=== PATIENT | female | born 1990 | race Caucasian/White ===

== ENCOUNTER 2017-10-21 23:54 | Emergency (ER) | payer BC, OTHER ==
[~2017-10-21] VITALS: Ht 162.6 cm; Wt 72.0 kg
[~2017-10-21 23:54] MED LIST: AMOX875T20 PO; CITA20 PO
[2017-10-21 23:59] VITALS: BP 125/84; PULSE 130; RESP 20; TEMP 98.1; O2SAT 99
[2017-10-22] MEDS ORDERED: ALPR1TAB3 PO (00:32)
[2017-10-22] MEDS ORDERED: CELE20TA PO (00:32)
[2017-10-22] MEDS ORDERED: AMOXICILLIN/CLAVULANATE K 875 MG TAB PO ONE (02:00)
[2017-10-22] MEDS ORDERED: ALPRAZolam 1 MG TAB PO ONE (02:00)
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
[2017-10-22] MEDS ORDERED: AUGM875T3 PO ×2 (02:06→02:08)
[2017-10-22] MEDS ORDERED: ALPRAZolam 0.5 MG TAB PO ONE (02:15)
[2017-10-22 02:30] VITALS: BP 138/72
== END 2017-10-22 02:58 | disposition home or self-care (01) ==
LOC: PHED 23:54
DX: S60.572A Other superficial bite of hand of left hand, initial encounter (principal); S60.571A Other superficial bite of hand of right hand, initial encounter; S50.872A Other superficial bite of left forearm, initial encounter; S50.871A Other superficial bite of right forearm, initial encounter; S71.152A Open bite, left thigh, initial encounter; W54.0XXA Bitten by dog, initial encounter; F17.200 Nicotine dependence, unspecified, uncomplicated; F12.90 Cannabis use, unspecified, uncomplicated; F14.90 Cocaine use, unspecified, uncomplicated
CPT/HCPCS: 99283

== ENCOUNTER 2017-11-23 23:00 | Observation (INO) | payer OTHER ==
[~2017-11-23] VITALS: Ht 162.6 cm; Wt 60.0 kg
[~2017-11-23 23:00] MED LIST changes: +ALPR1TAB3 PO; -AMOX875T20 PO; +AUGM875T3 PO; +CELE20TA PO; -CITA20 PO
[2017-11-23 23:09] VITALS: RESP 20
[2017-11-23] MEDS ORDERED: ONDANSETRON HCL 4 MG/2 ML VIAL IV PUSH ONE (23:30)
[2017-11-23] MEDS ORDERED: MORPHINE SULFATE 2 MG/ML INJ IV PUSH ONE (23:30)
[2017-11-23] MEDS ORDERED: AMPICILLIN-SULBACTAM INJ 3 GM in SODIUM CHLORIDE 0.9% INJ 100 ML IV ONE (23:45)
[2017-11-23] MEDS ORDERED: SODIUM CHLOR 0.9% 1000 ML INJ 1,000 ML IV ONE (23:45)
[2017-11-23] MEDS ORDERED: KETOROLAC TROMETHAMINE 30 MG/ML (IVP) VIAL IV PUSH ONE (23:45)
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
[2017-11-23 23:47] VITALS: BP 143/77; PULSE 81; RESP 18; TEMP 98.2; O2SAT 100
[2017-11-24 00:01] LABS: AUTOMATED NEUTROPHIL # 8.6 TH/MM3 (1.8-7.7); BASOPHIL # 0.1 TH/MM3 (0-0.2); BASOPHIL % 0.4 % (0.0-2.0); EOSINOPHIL # 0.1 TH/MM3 (0-0.4); EOSINOPHIL % 0.9 % (0.0-4.0); HEMATOCRIT 39.4 % (35.0-46.0); HEMOGLOBIN 13.4 GM/DL (11.6-15.3); LYMPH % 27.6 % (9.0-44.0); LYMPHOCYTE # 3.6 TH/MM3 (1.0-4.8); MEAN CELL VOLUME 90.6 FL (80.0-100.0); MEAN CORPUSCULAR HEMOGLOBIN 30.7 PG (27.0-34.0); MEAN CORPUSCULAR HGB CONC 33.9 % (32.0-36.0); MEAN PLATELET VOLUME 10.2 FL (7.0-11.0); MONOCYTE # 0.8 TH/MM3 (0-0.9); NEUT % 65.1 % (16.0-70.0); PLATELET COUNT 313 TH/MM3 (150-450); RED BLOOD COUNT 4.35 MIL/MM3 (4.00-5.30); RED CELL DISTRIBUTION WIDTH 12.7 % (11.6-17.2); WHITE BLOOD COUNT 13.2 TH/MM3 (4.0-11.0)
[2017-11-24 00:24] LABS: BICARBONATE 19.7 MEQ/L (21.0-32.0); BLOOD UREA NITROGEN 20 MG/DL (7-18); CHLORIDE 108 MEQ/L (98-107); CREATININE 0.88 MG/DL (0.50-1.00); GLOMERULAR FILTRATION RATE 77 ML/MIN (>89); GLUCOSE,RANDOM 115 MG/DL (74-106); SODIUM (NA) 139 MEQ/L (136-145)
--- NOTE | 2017-11-24 00:27 | RADRPT ---
EXAM DATE/TIME: 11/23/2017 23:48 [facility] COMPARISON: No previous studies available for comparison. INDICATIONS : Right hand pain after dog bite. MEDICAL HISTORY : None. SURGICAL HISTORY : None. ENCOUNTER: Initial ACUITY: 1 day PAIN SCORE: 8/10 LOCATION: Right hand. FINDINGS: Three view examination of the right hand demonstrates extensive soft tissue injury without dislocatio n, or fracture. The carpal bones appear intact. The interphalangeal and metacarpophalangeal joints are intact. Bony mineralization is normal. CONCLUSION: Extensive soft tissue injury without fracture. Shayne Hunter MD on November 24, 2017 at 0:25 Board Certified Radiologist. This report was verified electronically.
--- NOTE | 2017-11-24 00:28 | RADRPT ---
EXAM DATE/TIME: 11/23/2017 23:50 [facility] COMPARISON: No previous studies available for comparison. INDICATIONS : Left hand pain after dog bite. MEDICAL HISTORY : None. SURGICAL HISTORY : None. ENCOUNTER: Initial ACUITY: 1 day PAIN SCORE: 8/10 LOCATION: Left hand. FINDINGS: Three view examination of the left hand demonstrates extensive soft tissue injury without dislocation , or fracture. The carpal bones appear intact. The interphalangeal and metacarpophalangeal joints are intact. Bony mineralization is normal. CONCLUSION: Extensive soft tissue injury without fracture. Shayne Hunter MD on November 24, 2017 at 0:26 Board Certified Radiologist. This report was verified electronically.
[2017-11-24] MEDS ORDERED: LIDOCAINE HCL 1% PF 30 ML VIAL INFIL ONE (00:45)
[2017-11-24] MEDS ORDERED: MORPHINE SULFATE 2 MG/ML INJ IV PUSH ONE ×2 (01:30→05:15)
[2017-11-24] MEDS ORDERED: ONDANSETRON HCL 4 MG/2 ML VIAL IV PUSH ONE (03:15)
[2017-11-24] MEDS ORDERED: SODIUM CHLOR 0.9% 1000 ML INJ 1,000 ML IV SCH ×2 (03:15→05:04)
[2017-11-24 03:25] VITALS: BP 115/73; PULSE 64; RESP 16; O2SAT 100
[2017-11-24] MEDS ORDERED: hydrALAZINE HCL 20 MG/ML VIAL IV PUSH ONE (04:30)
[2017-11-24] MEDS ORDERED: NALOXONE HCL 0.4 MG/ML AMP IV PUSH PRN (05:15)
[2017-11-24] MEDS ORDERED: MORPHINE SULFATE 2 MG/ML INJ IV PUSH PRN (05:15)
[2017-11-24] MEDS ORDERED: SODIUM CHLORIDE 0.9% FLUSH 10 ML FLUSH IV FLUSH PRN (05:15)
[2017-11-24] MEDS ORDERED: ACETAMINOPHEN 325 MG TAB PO PRN (05:15)
[2017-11-24] MEDS ORDERED: ONDANSETRON HCL 4 MG/2 ML VIAL IVP PRN (05:15)
[2017-11-24] MEDS: AMPICILLIN-SULBACTAM INJ 3 GM in SODIUM CHLORIDE 0.9% INJ 100 ML IV SCH ×2 (05:28→12:00)
[2017-11-24] MEDS ORDERED: LIDOCAINE HCL 1% PF 10 ML VIAL INFIL ONE (06:45)
[2017-11-24] MEDS ORDERED: HYDROmorphone HCL PF 2 MG/ML VIAL IV PUSH PRN (08:30)
[2017-11-24] MEDS ORDERED: ACETAMINOPHEN/HYDROcodone 325 MG/10 MG TAB PO PRN (08:30)
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
[2017-11-24] MEDS ORDERED: SODIUM CHLORIDE 0.9% FLUSH 10 ML FLUSH IV FLUSH SCH (09:00)
[2017-11-24] MEDS ORDERED: BUPIVACAINE/EPINEPHRINE 0.25% 50 ML VIAL ONE (10:22)
[2017-11-24] MEDS ORDERED: GENTAMICIN SULFATE 80 MG/2 ML VIAL ONE (10:22)
[2017-11-24] MEDS ORDERED: ACETAMINOPHEN 1000 MG/100 ML 100 ML IV ONE (10:34)
[2017-11-24] MEDS ORDERED: BACITRACIN TOP OINT 15 GM TUBE ONE (10:51)
[2017-11-24] MEDS ORDERED: PROPOFOL 200 MG/20 ML AMP IV ONE (12:00)
[2017-11-24] MEDS ORDERED: LIDOCAINE HCL 1% PF 5 ML SYRINGE OTHER ONE (12:00)
[2017-11-24] MEDS ORDERED: DEXAMETHASONE SOD PHOS 4 MG/ML VIAL IV ONE (12:00)
[2017-11-24] MEDS ORDERED: ONDANSETRON HCL 4 MG/2 ML VIAL IV ONE (12:00)
[2017-11-24] MEDS ORDERED: DO NOT ADM ANY ANTICOAGULANT DRUGS PRN (12:35)
[2017-11-24] MEDS ORDERED: MIDAZOLAM HCL 2 MG/2 ML VIAL ONE (12:40)
[2017-11-24] MEDS ORDERED: *MEPERIDINE 25 MG INJ VIAL PERIprocedural Use ONLY ONE (12:41)
[2017-11-24] MEDS ORDERED: AUGM875T3 PO (13:29)
[2017-11-24 15:20] VITALS: BP 118/79; PULSE 65; RESP 20; TEMP 98.1; O2SAT 98
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
[2017-11-24] MEDS ORDERED: ACETAMINOPHEN/HYDROcodone 325 MG/5 MG TAB PO PRN (20:15)
== END 2017-11-24 15:20 | disposition home or self-care (01) ==
LOC: NEPC 23:00 → NEDA 11-24 05:03 → HPAC 11-24 10:22
PROVIDERS: ADMIT Hospitalist; ATTEND Hospitalist
DX: S00-T88 Injury, poisoning and certain other consequences of external causes (principal); S60.571A Other superficial bite of hand of right hand, initial encounter; S60.572A Other superficial bite of hand of left hand, initial encounter; S71.152A Open bite, left thigh, initial encounter; F41.0 Panic disorder [episodic paroxysmal anxiety]; F32.9 Major depressive disorder, single episode, unspecified; F17.200 Nicotine dependence, unspecified, uncomplicated; F12.90 Cannabis use, unspecified, uncomplicated; F14.90 Cocaine use, unspecified, uncomplicated; W54.0XXA Bitten by dog, initial encounter
CPT/HCPCS: 01810; 12002; 12004; 64910; 73130; 80048; 80307; 84703; 85025; 86403; 87070; 87205; 96361; 96365; 96375; 96376; 99285; C9352; G0378; J0131; J0295; J1100; J1580; J1885; J2175; J2250; J2270; J2405; J3010; J7030